=== PATIENT | male | born 1965 | race Caucasian/White ===

== ENCOUNTER 2019-11-13 09:11 | Day surgery (SDC) | payer BC, OTHER ==
[~2019-11-13 09:11] MED LIST: ACETAMINOPHEN-CODEIN PO; AMIT75 PO; GABA300T24 PO; LIDO5TO TOP; LOSA25 PO; MELO7.5; MELO7.5 PO; META800 PO; METPRE4; SOMA350 MG PO
--- NOTE | 2019-11-13 12:48 | NUR ---
PT TO STEP. DRESSING TO LEFT FOOT DRY AND INTACT. DENIES PAIN.
--- NOTE | 2019-11-13 13:21 | NUR ---
WRITTEN AND VERBAL D/C INSTUCTIONS GIVEN TO PT WITH STATED UNDERSTANDING.
--- NOTE | 2019-11-13 13:27 | NUR ---
NO CHANGE IN SURGERY SITE. ABLE TO WIGGLE TOES. DRESSING D/I.
--- NOTE | 2019-11-13 13:29 | NUR ---
PT REFUSED WHEELCHAIR OUT. AMBULATED WITH PT TO VEHICLE.
== END 2019-11-13 13:29 | disposition home or self-care (01) ==
LOC: ORSCMMR 09:11 → ORD 11:45 → ORSCMMR 13:29
PROVIDERS: Podiatrist Foot & Ankle Surgery
PROC: 0L8W0ZZ Division of Left Foot Tendon, Open Approach (ICD-10-PCS; principal; 2019-11-13 11:45)
PROC: 0HBNXZX Excision of Left Foot Skin, External Approach, Diagnostic (ICD-10-PCS; principal; 2019-11-13 11:45)
DX: M20.42 Other hammer toe(s) (acquired), left foot (principal); L72.8 Other follicular cysts of the skin and subcutaneous tissue; Z01.818 Encounter for other preprocedural examination; I10 Essential (primary) hypertension; Z79.899 Other long term (current) drug therapy
CPT/HCPCS: 88304; 93005; 93010; J0690; J2001; J2250; J2270; J2704; J3010; J7120

== ENCOUNTER → 2021-03-27 | Outpatient (CLI) | payer OTHER | LOC: LAB 12:06 → LAB SHORT 12:06 | DX: L90.5 Scar conditions and fibrosis of skin (principal); L57.0 Actinic keratosis | CPT/HCPCS: 88305 ==

== ENCOUNTER → 2022-11-05 | Outpatient (CLI) | payer OTHER ==
[2022-11-05 13:11] LABS: BASOPHILS ABSOLUTE AUTO 0.08 K/mm3 (0.00-0.23); BASOPHILS PERCENT AUTO 1 % (0-2); EOSINOPHILS ABSOLUTE AUTO 0.12 K/mm3 (0.00-0.68); EOSINOPHILS PERCENT AUTO 2 % (0-6); Hematocrit 52.5 % (37.0-53.0); Hemoglobin 17.1 g/dL (13.5-17.5); IMMATURE GRAN ABSOLUTE AUTO 0.04 K/mm3 (0.00-0.10); IMMATURE GRAN PERCENT AUTO 1 % (0-1); LYMPHOCYTES ABSOLUTE AUTO 2.35 K/mm3 (0.84-5.20); LYMPHOCYTES PERCENT AUTO 30 % (21-46); MONOCYTES ABSOLUTE AUTO 0.55 K/mm3 (0.16-1.47); MONOCYTES PERCENT AUTO 7 % (4-13); Mean Corpuscular HGB 28.8 pg (26.0-34.0); Mean Corpuscular HGB Conc 32.6 g/dL (31.5-36.5); Mean Corpuscular Volume 88 fL (80-100); NEUTROPHILS ABSOLUTE AUTO 4.59 K/mm3 (1.96-9.15); NEUTROPHILS PERCENT AUTO 59 % (41-73); Platelet Count 163 K/mm3 (150-400); RDW Coefficient Variation 12.5 % (11.7-14.2); RDW Standard Deviation 40.9 fL (35.1-46.3); Red Blood Cell Count 5.94 M/mm3 (4.30-5.90); White Blood Cell Count 7.73 K/mm3 (4.00-11.30)
[2022-11-05 13:31] LABS: Albumin, Blood 4.4 g/dL (3.4-5.0); Albumin/Globulin Ratio 1.3 (0.8-1.8); Bilirubin, Total 0.5 mg/dL (0.1-1.0); Bun/Creatinine Ratio 15.1 (12.0-20.0); Calcium, Blood 9.1 mg/dL (8.5-10.1); Creatinine, Blood 1.06 mg/dL (0.60-1.20); Globulin, Blood 3.4 g/dL (2.2-4.0); Potassium, Blood 4.4 mmol/L (3.5-5.5); Total Protein, Blood 7.8 g/dL (6.4-8.2)
== END ==
LOC: LAB 12:47 → LAB SHORT 12:47
PROVIDERS: Physician Assistant
DX: R31.9 Hematuria, unspecified (principal)
CPT/HCPCS: 80053; 85025; 87086

== ENCOUNTER 2024-11-12 20:38 | Emergency (ER) | payer OTHER ==
[~2024-11-12] VITALS: Ht 182.9 cm; Wt 90.7 kg
[2024-11-13 01:27] VITALS: BP 152/107
[2024-11-13] MEDS ORDERED: CAPSAICIN60 G1 TOP (01:39)
[2024-11-13] MEDS ORDERED: GABA300 PO ×3 (01:39→01:41)
== END 2024-11-13 01:42 | disposition home or self-care (01) ==
LOC: ER 20:38
DX: M54.31 Sciatica, right side (principal); Z79.899 Other long term (current) drug therapy; Z88.5 Allergy status to narcotic agent; Z88.8 Allergy status to other drugs, medicaments and biological substances
CPT/HCPCS: 99282

== ENCOUNTER 2024-12-04 16:41 | Emergency (ER) | payer OTHER ==
[~2024-12-04] VITALS: Ht 177.8 cm; Wt 113.4 kg
[~2024-12-04 16:41] MED LIST changes: +CAPSAICIN60 G1 TOP; +GABA300 PO
[2024-12-04] MEDS ORDERED: Lactated Ringer's 1,000 ML IV ONE (17:30)
[2024-12-04] MEDS ORDERED: Ketamine HCL 10 MG in NS 100 ML IV ONE (17:30)
[2024-12-04] MEDS ORDERED: Ketorolac Tromethamine 15mg Vial IV ONE (17:30)
[2024-12-04] MEDS ORDERED: OxyCODONE HCL 5 MG TAB PO ONE (18:40)
[2024-12-04 19:15] VITALS: BP 126/88
[2024-12-04] MEDS ORDERED: RX Prepack 6 Tabs Oxycodone 5mg UD ONE (19:45)
[2024-12-04] MEDS ORDERED: OXAYDO5 M1 PO (19:49)
[2024-12-04] MEDS ORDERED: Voltaren100 GM TOP (19:49)
== END 2024-12-04 20:04 | disposition home or self-care (01) ==
LOC: ER 16:41
DX: S39.012A Strain of muscle, fascia and tendon of lower back, initial encounter (principal); G89.29 Other chronic pain; X58.XXXA Exposure to other specified factors, initial encounter; Z79.899 Other long term (current) drug therapy; Z88.5 Allergy status to narcotic agent; Z88.8 Allergy status to other drugs, medicaments and biological substances
CPT/HCPCS: 96365; 96375; 99284-25; A9270; J1885; J7120

== ENCOUNTER 2025-03-29 08:58 | Day surgery (SDC) | payer MEDICARE ==
[2025-03-29] VITALS (20 sets, daily range): BP systolic 123–143; BP diastolic 82–102
[~2025-03-29] VITALS: Ht 177.8 cm; Wt 115.0 kg
[~2025-03-29 08:58] MED LIST changes: +Bupivacaine 0.5% HCl 5 MG/ML 30MLVIAL ONE; +DULO30 PO; +FentaNYL Citrate 50 MCG/ML 2 ML Injection ONE; -LOSA25 PO; +LOSARTAN POTAS100 M1 PO; +Midazolam HCl 1MG / ML 2ML Vial ONE; +OXAYDO5 M1 PO; +TRAM50 PO; +Voltaren100 GM TOP; +propofoL 20 ML IV ONE
[2025-03-29] MEDS ORDERED: Sugammadex Sodium 200 MG/2ML SDV (100 MG/ML) ONE (09:01)
[2025-03-29] MEDS ORDERED: EPINEPhrine HCl 1 MG / ML 30ML Vial ONE (09:20)
[2025-03-29] MEDS ORDERED: Lactated Ringer's 1,000 ML IV SCH (09:25)
[2025-03-29] MEDS ORDERED: CeFAZolin Sodium 2,000 MG in NS 100 ML IV SCH (09:25)
[2025-03-29] MEDS ORDERED: METOPROLOL SUCC25 MG PO (09:27)
[2025-03-29] MEDS ORDERED: Methocarbamol500 MG (09:28)
[2025-03-29] MEDS ORDERED: Tranexamic Acid 100 ML IV SCH (09:42)
--- NOTE | 2025-03-29 10:19 | NUR ---
History, Chart, Medications and Allergies reviewed before start of procedure. Patient States Post-Procedure ride home has been arranged.
--- NOTE | 2025-03-29 10:33 | NUR ---
INTERSCALENE NERVE BLOCK COMPLETED IN SDS 1010: TIME OUT 1012: PROCEDURE START 1016: PROCEDURE END PULSE OX ON THROUGHOUT PROCEDURE, VSS, ROOM AIR; PT TOLERATED PROCEDURE WELL, NO ISSUES.
[2025-03-29] MEDS ORDERED: Lidocaine 1%-Epineph 1:100000 20 ML MDV XX ONE (11:20)
[2025-03-29] MEDS ORDERED: Phenylephrine HCl 100 MCG/ML-NS 10MLSYR (1MG/10ML) ONE (11:24)
[2025-03-29] MEDS ORDERED: propofoL 20 ML IV ONE (11:56)
[2025-03-29] MEDS ORDERED: Ondansetron HCl 2 MG / ML 2ML Vial ONE ×2 (12:27→13:01)
[2025-03-29] MEDS ORDERED: Dexamethasone Sod Phos 10 MG/ML 1ML VIAL ONE (12:27)
[2025-03-29] MEDS ORDERED: Ketorolac Tromethamine 30mg Vial ONE (12:48)
[2025-03-29] MEDS ORDERED: HYDROmorphone HCl/Pf 1MG SYR ONE (12:54)
[2025-03-29] MEDS ORDERED: FentaNYL Citrate 50 MCG/ML 2 ML Injection ONE ×2 (13:08→13:17)
[2025-03-29] MEDS ORDERED: DiphenhydrAMINE HCl 50 MG/ML 1ML Vial ONE (13:22)
[2025-03-29] MEDS ORDERED: OxyCODONE HCL 5 MG TAB PO ONE (15:00)
--- NOTE | 2025-03-29 15:40 | NUR ---
TO STEP POST LEFT SHOULDER ARTHROSCOPY. DENIES PAIN, NAUSEA, SOB. DOES REPORT SOME ITCHING, HAS REC'D BENADRYL IV IN PACU. DAIANA PO WELL. IMMOBILIZER PLACED ORDERED. VERIFIED POST OP MEDS AVAILABLE AT PT'S PHARMACY. DC'D IV INTACT. VERBALIZED UNDERSTANDING OF WOUND CARE/FOLLOW UP/MEDICATIONS. DC'D VIA WC TO PRIVATE CAR WITH LEGAL RECEPTIONIST.
== END 2025-03-29 15:38 | disposition home or self-care (01) ==
LOC: ORSCMMR 08:58 → ORD 10:15 → ORSCMMR 15:38
PROVIDERS: Orthopaedic Surgery Sports Medicine
PROC: 0LM24ZZ Reattachment of Left Shoulder Tendon, Percutaneous Endoscopic Approach (ICD-10-PCS; principal; 2025-03-29 10:15)
PROC: 0RNK4ZZ Release Left Shoulder Joint, Percutaneous Endoscopic Approach (ICD-10-PCS; principal; 2025-03-29 10:15)
PROC: 0LS44ZZ Reposition Left Upper Arm Tendon, Percutaneous Endoscopic Approach (ICD-10-PCS; principal; 2025-03-29 10:15)
PROC: 0R5 Upper Joints, Destruction (ICD-10-PCS; principal; 2025-03-29 10:15)
DX: M75.102 Unspecified rotator cuff tear or rupture of left shoulder, not specified as traumatic (principal); M75.32 Calcific tendinitis of left shoulder; M19.012 Primary osteoarthritis, left shoulder; M75.52 Bursitis of left shoulder; M75.02 Adhesive capsulitis of left shoulder; I10 Essential (primary) hypertension; Z79.899 Other long term (current) drug therapy
CPT/HCPCS: A9270; C1713; J0171; J0690; J1100; J1171; J1200; J1885; J2250; J2371; J2405; J2704; J3010

== ENCOUNTER → 2025-09-17 | Outpatient (CLI) | payer MEDICARE, BC ==
[~2025-09-17] MED LIST changes: -Bupivacaine 0.5% HCl 5 MG/ML 30MLVIAL ONE; -FentaNYL Citrate 50 MCG/ML 2 ML Injection ONE; +METOPROLOL SUCC25 MG PO; +Methocarbamol500 MG; -Midazolam HCl 1MG / ML 2ML Vial ONE; -propofoL 20 ML IV ONE
== END | disposition home or self-care (01) ==
LOC: LAB 16:04 → LAB SHORT 16:04
DX: L08.0 Pyoderma (principal)
CPT/HCPCS: 87070; 87205